=== PATIENT | female | born 1965 | race American Indian/Alaskan Native ===

== ENCOUNTER 2021-07-19 15:24 | Inpatient (IN) | payer MEDICAID, OTHER ==
[2021-07-19] MEDS ORDERED: Sodium Chloride 0.9% 1,000 ML IV ONE ×2 (15:30→16:58)
[2021-07-19] MEDS ORDERED: Sodium Chloride 0.9% 10 ML Syringe FLUSH PRN (15:58)
--- NOTE | 2021-07-19 16:13 | EDM.PDOC ---
ED HPI GENERAL MEDICAL PROBLEM - General Chief Complaint: General Stated Complaint: cough, sob, fatigue Time Seen by Provider: 07/19/21 15:24 Source of Information: Reports: Patient History Limitations: Reports: No Limitations - History of Present Illness INITIAL COMMENTS - FREE TEXT/NARRATIVE: C department complaint of cough, fatigue, fever, shortness of breath. Patient states that she has been sick approximately 7 days. She states in the last 24 hours she is increasing shortness of breath, cough in which she presented to the emergency department for. Patient states that she has been running low-grade fever. She states that she gets winded easily. Patient does not have the COVID-19 vaccine. Patient is not aware of any direct contact with COVID-19. Patient denies any other concerns or complaints. Patient denies any chest pain, dizziness, lightheadedness, blurred vision, CMS or range of motion concerns, abdominal pain, nausea or vomiting, or peripheral edema. Onset: Gradual Duration: Other Quality: Reports: Ache Severity: Severe Improves with: Reports: None Worsens with: Reports: None Associated Symptoms: Reports: Cough, cough w sputum, Fever/Chills, Loss of Appetite, Malaise, Shortness of Breath, Weakness. Denies: Nausea/Vomiting Headache Pain Score (Numeric/FACES): 7 - Related Data Allergies Allergy/AdvReac Type Severity Reaction Status Date / Time No Known Allergies Allergy Verified 07/19/21 18:02 Home Meds: Home Meds Multivit with Calcium,Iron,Min [One Daily with Calcium-Iron] 1 tab PO DAILY 07/19/21 [History] Nicotine Polacrilex [Nicotine Lozenge] 1 lozenge PO Q4H 07/19/21 [History] Nicotine [Nicoderm CQ] 1 patch TOP DAILY 07/19/21 [History] ED ROS GENERAL - Review of Systems Review Of Systems: Comprehensive ROS is negative, except as noted in HPI. Constitutional: Reports: Fever, Chills, Malaise, Weakness, Fatigue, Decreased Appetite HEENT: Reports: No Symptoms Respiratory: Reports: Pleuritic Chest Pain, Cough, Sputum Cardiovascular: Reports: No Symptoms Endocrine: Reports: No Symptoms GI/Abdominal: Reports: No Symptoms : Reports: No Symptoms Musculoskeletal: Reports: No Symptoms Skin: Reports: No Symptoms Neurological: Reports: No Symptoms Psychiatric: Reports: No Symptoms Hematologic/Lymphatic: Reports: No Symptoms Immunologic: Reports: No Symptoms ED EXAM, GENERAL - Physical Exam Exam: See Below Exam Limited By: No Limitations General Appearance: Alert, WD/WN, No Apparent Distress Eye Exam: Bilateral Eye: EOMI, PERRL Nose: Normal Inspection, Normal Mucosa, No Blood Head: Atraumatic, Normocephalic Neck: Normal Inspection, Supple, Non-Tender, Full Range of Motion Respiratory/Chest: Respiratory Distress, Decreased Breath Sounds, Rhonchi Cardiovascular: Tachycardia GI/Abdominal: Normal Bowel Sounds, Soft, Non-Tender, No Abnormal Bruit Back Exam: Normal Inspection, Full Range of Motion Extremities: Normal Inspection, Normal Range of Motion, Non-Tender, Normal Capillary Refill Neurological: Alert, Oriented, Normal Gait Psychiatric: Normal Affect, Normal Mood Skin Exam: Warm, Dry, Intact, Normal Color, No Rash Course - Vital Signs Last Recorded V/S: Last Vital Signs Temp 36.6 C 07/20/21 05:17 Pulse 85 07/20/21 05:17 Resp 20 07/20/21 05:17 BP 131/58 L 07/20/21 05:17 Pulse Ox 94 L 07/20/21 05:17 - Orders/Labs/Meds Orders: Active Orders 24 hr Category Date Time Status Cardiac Monitoring [RC] 06,10,14,18,22,02 Care 07/19/21 15:58 Active RT Aerosol Therapy [RC] 00,04,08,12,16,20 Care 07/19/21 16:14 Active CULTURE BLOOD [BC] Stat Lab 07/19/21 15:40 Received CULTURE BLOOD [BC] Stat Lab 07/19/21 15:54 Received Sodium Chloride 0.9% [Saline Flush] Med 07/19/21 15:58 Active 10 ml FLUSH ASDIRECTED PRN Blood Culture x2 Reflex Set [OM.PC] Stat Oth 07/19/21 15:57 Ordered Peripheral IV Insertion Adult [OM.PC] Stat Oth 07/19/21 15:57 Ordered Medication Orders Acetaminophen (Acetaminophen 325 Mg Tab) 650 mg PO Q4H PRN PRN Reason: Pain (Mild 1-3)/fever Last Admin: 07/20/21 02:55 Dose: 650 mg Documented by: ELMER Albuterol/Ipratropium (Albuterol/Ipratropium 3.0-0.5 Mg/3 Ml Neb Soln) 3 ml NEB Q4HWA [facility] Last Admin: 07/20/21 04:08 Dose: 3 ml Documented by: Admin: 07/19/21 23:50 Dose: 3 ml Documented by: Admin: 07/19/21 19:36 Dose: 3 ml Documented by: ELMER Albuterol/Ipratropium (Albuterol/Ipratropium 3.0-0.5 Mg/3 Ml Neb Soln) 3 ml NEB Q2H PRN PRN Reason: Shortness of Breath Last Admin: 07/20/21 02:07 Dose: 3 ml Documented by: ELMER Ceftriaxone Sodium (Ceftriaxone 1 Gm Vial) 1 gm IVPUSH DAILY [facility] Last Admin: 07/20/21 07:00 Dose: 1 gm Documented by: ELMER Guaifenesin/Codeine Phosphate (Codeine/Guaifenesin 10-100 Mg/5 Ml Syrup 5 Ml Cup) 5 ml PO Q4H PRN PRN Reason: Cough Last Admin: 07/20/21 07:00 Dose: 5 ml Documented by: Admin: 07/20/21 02:56 Dose: 5 ml Documented by: ELMER Sodium Chloride (Normal Saline) 1,000 mls @ 125 mls/hr IV ASDIRECTED [facility] Last Admin: 07/20/21 04:14 Dose: 125 mls/hr Documented by: Infusion: 07/20/21 02:04 Dose: 125 mls/hr Documented by: Admin: 07/19/21 18:04 Dose: 125 mls/hr Documented by: BHARTI Azithromycin 500 mg/ Sodium (Chloride) 250 mls @ 250 mls/hr IV DAILY [facility] Last Admin: 07/20/21 07:04 Dose: 250 mls/hr Documented by: Admin: 07/19/21 19:34 Dose: 250 mls/hr Documented by: ELMER Potassium Chloride 20 meq/ (Premix) 50 mls @ 50 mls/hr IV Q2H [facility] Stop: 07/20/21 13:44 Morphine Sulfate (Morphine 2 Mg/Ml Syringe) 2 mg IVPUSH Q2H PRN PRN Reason: Pain Multivitamins/Minerals (Multivitamins With Iron/Calcium/Folic Acid/Minerals Tab) 1 tab PO DAILY [facility] Last Admin: 07/20/21 07:00 Dose: 1 tab Documented by: ELMER Ondansetron HCl (Ondansetron 4 Mg/2 Ml Sdv) 4 mg IV Q4H PRN PRN Reason: Nausea/Vomiting Polyethylene Glycol (Polyethylene Glycol 3350 Powder 17 Gm Packet) 17 gm PO DAILY PRN PRN Reason: Constipation Sodium Chloride (Sodium Chloride 0.9% 10 Ml Syringe) 10 ml FLUSH ASDIRECTED PRN PRN Reason: Keep Vein Open Last Admin: 07/20/21 07:04 Dose: 10 ml Documented by: ELMER Labs: Laboratory Tests 07/19/21 07/19/21 07/19/21 Range/Units 15:30 15:40 15:40 WBC 8.6 (4.0-10.0) x10^3/uL RBC 4.03 (4.00-5.50) x10^6/uL Hgb 13.0 (12.0-16.0) g/dL Hct 35.1 (33.0-47.0) % MCV 87.1 (78.0-93.0) fL MCH 32.3 H (26.0-32.0) pg MCHC 37.0 H (32.0-36.0) g/dL RDW Coeff of Nedra 12.0 (10.0-15.0) % Plt Count 208 (130-400) x10^3/uL Immature Gran % (Auto) 0.50 H (0.00-0.43) % Neut % (Auto) 88.8 H (50.0-80.0) % Lymph % (Auto) 7.7 L (25.0-50.0) % Hubbard % (Auto) 2.6 (2.0-11.0) % Eos % (Auto) 0.2 (0.0-4.0) % Baso % (Auto) 0.2 (0.2-1.2) % Neut # (Auto) 7.6 (1.8-7.7) x10^3/uL Lymph # (Auto) 0.7 L (1.0-4.8) x10^3/uL Hubbard # (Auto) 0.2 (0.0-0.8) x10^3/uL Eos # (Auto) 0.0 (0.0-0.5) x10^3/uL Baso # (Auto) 0.0 (0.0-0.2) x10^3/uL Immature Gran # (Auto) 0.04 (0.00-0.07) x10^3/uL Sodium 131 L (136-145) mmol/L Potassium 3.1 L (3.5-5.1) mmol/L Chloride 92 L (98-107) mmol/L Carbon Dioxide 25 (21-32) mmol/L Anion Gap 17.1 H (5-15) mmol/L BUN 6 L (7-18) mg/dL Creatinine 0.9 (0.55-1.02) mg/dL Est Cr Clr Drug Dosing TNP Estimated GFR (MDRD) > 60 Glucose 120 H (70-99) mg/dL Lactic Acid (0.4-2.0) mmol/L Calcium 8.3 L (8.5-10.1) mg/dL Corrected Calcium 9.3 (8.5-10.1) mg/dL Magnesium (1.8-2.4) mg/dL Total Bilirubin 1.3 H (0.2-1.0) mg/dL AST 45 H (15-37) U/L ALT 29 (14-59) U/L Alkaline Phosphatase 94 (46-116) U/L Creatine Kinase 157 (26-192) U/L NT-Pro-B Natriuret Pep 72 (<=125) pg/mL Total Protein 8.0 (6.4-8.2) g/dL Albumin 2.7 L (3.4-5.0) g/dL Globulin 5.3 Albumin/Globulin Ratio 0.51 Procalcitonin (0.1-0.50) ng/mL SARS CoV-2 RNA Rapid MISAEL Negative (NEGATIVE) 07/19/21 07/19/21 07/19/21 Range/Units 15:40 15:40 15:40 WBC (4.0-10.0) x10^3/uL RBC (4.00-5.50) x10^6/uL Hgb (12.0-16.0) g/dL Hct (33.0-47.0) % MCV (78.0-93.0) fL MCH (26.0-32.0) pg MCHC (32.0-36.0) g/dL RDW Coeff of Nedra (10.0-15.0) % Plt Count (130-400) x10^3/uL Immature Gran % (Auto) (0.00-0.43) % Neut % (Auto) (50.0-80.0) % Lymph % (Auto) (25.0-50.0) % Hubbard % (Auto) (2.0-11.0) % Eos % (Auto) (0.0-4.0) % Baso % (Auto) (0.2-1.2) % Neut # (Auto) (1.8-7.7) x10^3/uL Lymph # (Auto) (1.0-4.8) x10^3/uL Hubbard # (Auto) (0.0-0.8) x10^3/uL Eos # (Auto) (0.0-0.5) x10^3/uL Baso # (Auto) (0.0-0.2) x10^3/uL Immature Gran # (Auto) (0.00-0.07) x10^3/uL Sodium (136-145) mmol/L Potassium (3.5-5.1) mmol/L Chloride (98-107) mmol/L Carbon Dioxide (21-32) mmol/L Anion Gap (5-15) mmol/L BUN (7-18) mg/dL Creatinine (0.55-1.02) mg/dL Est Cr Clr Drug Dosing Estimated GFR (MDRD) Glucose (70-99) mg/dL Lactic Acid 2.1 H* (0.4-2.0) mmol/L Calcium (8.5-10.1) mg/dL Corrected Calcium (8.5-10.1) mg/dL Magnesium 2.4 (1.8-2.4) mg/dL Total Bilirubin (0.2-1.0) mg/dL AST (15-37) U/L ALT (14-59) U/L Alkaline Phosphatase (46-116) U/L Creatine Kinase (26-192) U/L NT-Pro-B Natriuret Pep (<=125) pg/mL Total Protein (6.4-8.2) g/dL Albumin (3.4-5.0) g/dL Globulin Albumin/Globulin Ratio Procalcitonin 0.35 (0.1-0.50) ng/mL SARS CoV-2 RNA Rapid MISAEL (NEGATIVE) Meds: Medications Generic Name Dose Route Start Last Admin Trade Name Freq PRN Reason Stop Dose Admin Acetaminophen 650 mg 07/19/21 17:53 07/20/21 02:55 Acetaminophen 325 Mg Tab PO 650 mg Q4H PRN Administration Pain (Mild 1-3)/fever Albuterol/Ipratropium 3 ml 07/19/21 20:00 07/20/21 04:08 Albuterol/Ipratropium 3.0-0.5 Mg/3 Ml Neb Soln NEB 3 ml Q4HWA NESSA Administration Albuterol/Ipratropium 3 ml 07/19/21 17:51 07/20/21 02:07 Albuterol/Ipratropium 3.0-0.5 Mg/3 Ml Neb Soln NEB 3 ml Q2H PRN Administration Shortness of Breath Ceftriaxone Sodium 1 gm 07/20/21 08:00 07/20/21 07:00 Ceftriaxone 1 Gm Vial IVPUSH 1 gm DAILY NESSA Administration Guaifenesin/Codeine Phosphate 5 ml 07/19/21 17:57 07/20/21 07:00 Codeine/Guaifenesin 10-100 Mg/5 Ml Syrup 5 Ml Cup PO 5 ml Q4H PRN Administration Cough Sodium Chloride 1,000 mls @ 125 mls/hr 07/19/21 18:00 07/20/21 04:14 Normal Saline IV 125 mls/hr ASDIRECTED NESSA Administration Azithromycin 500 mg/ Sodium 250 mls @ 250 mls/hr 07/19/21 19:30 07/20/21 07:04 Chloride IV 250 mls/hr DAILY NESSA Administration Potassium Chloride 20 meq/ 50 mls @ 50 mls/hr 07/20/21 08:45 Premix IV 07/20/21 13:44 Q2H NESSA Morphine Sulfate 2 mg 07/19/21 17:57 Morphine 2 Mg/Ml Syringe IVPUSH Q2H PRN Pain Multivitamins/Minerals 1 tab 07/20/21 08:00 07/20/21 07:00 Multivitamins With Iron/Calcium/Folic Acid/Minerals Tab PO 1 tab DAILY NESSA Administration Ondansetron HCl 4 mg 07/19/21 17:53 Ondansetron 4 Mg/2 Ml Sdv IV Q4H PRN Nausea/Vomiting Polyethylene Glycol 17 gm 07/19/21 17:53 Polyethylene Glycol 3350 Powder 17 Gm Packet PO DAILY PRN Constipation Sodium Chloride 10 ml 07/19/21 15:58 07/20/21 07:04 Sodium Chloride 0.9% 10 Ml Syringe FLUSH 10 ml ASDIRECTED PRN Administration Keep Vein Open Discontinued Medications Generic Name Dose Route Start Last Admin Trade Name Freq PRN Reason Stop Dose Admin Acetaminophen 650 mg 07/19/21 16:43 07/19/21 16:55 Acetaminophen 325 Mg Tab PO 07/19/21 16:44 650 mg NOW ONE Administration Albuterol/Ipratropium 3 ml 07/19/21 16:14 07/19/21 16:25 Albuterol/Ipratropium 3.0-0.5 Mg/3 Ml Neb Soln NEB 07/19/21 16:15 3 ml ONETIME ONE Administration Albuterol/Ipratropium 3 ml 07/19/21 17:02 07/19/21 17:12 Albuterol/Ipratropium 3.0-0.5 Mg/3 Ml Neb Soln NEB 07/19/21 17:03 3 ml ONETIME ONE Administration Ceftriaxone Sodium 1 gm 07/19/21 16:14 07/19/21 16:20 Ceftriaxone 1 Gm Vial IVPUSH 07/19/21 16:15 1 gm ONETIME ONE Administration Epinephrine HCl Confirm 07/20/21 11:44 Epinephrine 1 Mg/1 Ml Amp Administered 07/20/21 11:45 Dose 3 mg .ROUTE .STK-MED ONE Epinephrine HCl Confirm 07/20/21 11:44 Epinephrine 1:10,000 1 Mg/10 Ml Syringe Administered 07/20/21 11:45 Dose 3 mg .ROUTE .STK-MED ONE Sodium Chloride 1,000 mls @ 999 mls/hr 07/19/21 15:30 07/19/21 15:40 Normal Saline IV 07/19/21 16:30 999 mls/hr ONETIME ONE Administration Sodium Chloride 1,000 mls @ 999 mls/hr 07/19/21 16:58 07/19/21 16:58 Normal Saline IV 07/19/21 17:58 999 mls/hr ONETIME ONE Administration Azithromycin 500 mg/ Sodium 250 mls @ 250 mls/hr 07/19/21 18:00 Chloride IV DAILY NESSA Potassium Chloride Confirm 07/20/21 11:40 Kcl In Water 20 Meq/50 Ml Administered 07/20/21 11:41 Dose 200 mls @ as directed .ROUTE .STK-MED ONE Midazolam HCl Confirm 07/20/21 11:27 Midazolam 1 Mg/Ml 2 Ml Sdv Administered 07/20/21 11:28 Dose 2 mg .ROUTE .STK-MED ONE Midazolam HCl Confirm 07/20/21 11:29 Midazolam 1 Mg/Ml 2 Ml Sdv Administered 07/20/21 11:30 Dose 2 mg .ROUTE .STK-MED ONE Midazolam HCl Confirm 07/20/21 11:29 Midazolam 1 Mg/Ml 2 Ml Sdv Administered 07/20/21 11:30 Dose 2 mg .ROUTE .STK-MED ONE Rocuronium Gypsum Confirm 07/20/21 10:50 Rocuronium 50 Mg/5 Ml Vial Administered 07/20/21 10:51 Dose 50 mg .ROUTE .STK-MED ONE Succinylcholine Chloride Confirm 07/20/21 10:50 Succinylcholine 200 Mg/10 Ml Mdv Administered 07/20/21 10:51 Dose 200 mg .ROUTE .STK-MED ONE Departure - Departure Time of Disposition: 16:35 Disposition: Admitted As Inpatient 68 Condition: Fair Clinical Impression: Pneumonia Qualifiers: Pneumonia type: due to unspecified organism Laterality: bilateral Lung location: lower lobe of lung Qualified Code(s): J18.9 - Pneumonia, unspecified organism Respiratory failure Qualifiers: Chronicity: acute Respiratory failure complication: hypoxia Qualified Code(s): J96.01 - Acute respiratory failure with hypoxia - Discharge Information *PRESCRIPTION DRUG MONITORING PROGRAM REVIEWED*: Not Applicable *COPY OF PRESCRIPTION DRUG MONITORING REPORT IN PATIENT CHASE: Not Applicable - My Orders Last 24 Hours: My Active Orders 07/19/21 15:40 CULTURE BLOOD [BC] Stat 07/19/21 15:54 CULTURE BLOOD [BC] Stat 07/19/21 15:57 Blood Culture x2 Reflex Set [OM.PC] Stat Peripheral IV Insertion Adult [OM.PC] Stat 07/19/21 15:58 Cardiac Monitoring [RC] 06,10,14,18,22,02 Sodium Chloride 0.9% [Saline Flush] 10 ml FLUSH ASDIRECTED PRN 07/19/21 16:14 RT Aerosol Therapy [RC] 00,04,08,12,16,20 - Assessment/Plan Last 24 Hours: My Active Orders 07/19/21 15:40 CULTURE BLOOD [BC] Stat 07/19/21 15:54 CULTURE BLOOD [BC] Stat 07/19/21 15:57 Blood Culture x2 Reflex Set [OM.PC] Stat Peripheral IV Insertion Adult [OM.PC] Stat 07/19/21 15:58 Cardiac Monitoring [RC] 06,10,14,18,22,02 Sodium Chloride 0.9% [Saline Flush] 10 ml FLUSH ASDIRECTED PRN 07/19/21 16:14 RT Aerosol Therapy [RC] 00,04,08,12,16,20 Assessment:: 1. pneumonia 2. SOB 3. Fatigue Plan: 1. Sepsis protocol initiated and followed 2. Labs completed in the ER. Results reviewed with the patient 3. Blood cultures completed 4. IV initiated in the emergency department 5. IV fluids provided- 2 L bolus i 6. EKG completed in ER. 7. Covid-19 test completed 8. Rocephin 1gm given 9. O2 therapy to keep sat above 92%. Hi-flow initiated 10. Consultation completed withVeronica Leahy who will admit the patient 11. Patient and nursing staff was updated regarding the plan of care 12. Patient and family are agreeable to the above plan of care 13. All questions and concerns were addressed with the patient and family prior to discharge
[2021-07-19] MEDS ORDERED: Albuterol/Ipratropium 3.0-0.5 MG/3 ML Neb Soln NEB ONE ×2 (16:14→17:02)
[2021-07-19] MEDS ORDERED: cefTRIAXone 1 GM Vial IVPUSH ONE (16:14)
[2021-07-19 16:28] LABS: ANION GAP 17.1 mmol/L (5-15); CHLORIDE,CL 92 mmol/L (98-107); SODIUM,NA 131 mmol/L (136-145)
[2021-07-19] MEDS ORDERED: Acetaminophen 325 MG Tab PO ONE (16:43)
[2021-07-19] MEDS ORDERED: Albuterol/Ipratropium 3.0-0.5 MG/3 ML Neb Soln NEB PRN (17:51)
[2021-07-19] MEDS ORDERED: Acetaminophen 325 MG Tab PO PRN (17:53)
[2021-07-19] MEDS ORDERED: Polyethylene Glycol 3350 Powder 17 GM Packet PO PRN (17:53)
[2021-07-19] MEDS ORDERED: Ondansetron 4 MG/2 ML SDV IV PRN (17:53)
--- NOTE | 2021-07-19 17:54 | CR ---
[id number] RAD/RAD Chest Portable EXAM: PORTABLE CHEST INDICATION: SOB COMPARISON: None. DISCUSSION: Mild elevation of the right hemidiaphragm. Borderline heart size. Multifocal bilateral infiltrates throughout both lungs most suggestive of infection including COVID pneumonia. No effusions. IMPRESSION: 1. Multifocal bilateral infiltrates most consistent with infection. Terrell Cha MD 07/19/21 [id number] Thank you for allowing us to participate in the care of your patient.
[2021-07-19] MEDS ORDERED: Morphine 2 MG/ML SYRINGE IVPUSH PRN (17:57)
[2021-07-19] MEDS ORDERED: Azithromycin 500 MG in Sodium Chloride 0.9% 250 ML IV SCH (18:00)
[2021-07-19] MEDS: Sodium Chloride 0.9% 1,000 ML IV SCH (18:04)
[2021-07-19] MEDS: Azithromycin 500 MG in Sodium Chloride 0.9% 250 ML IV SCH (19:34)
[2021-07-19] MEDS: Albuterol/Ipratropium 3.0-0.5 MG/3 ML Neb Soln NEB SCH ×2 (19:36→23:50)
--- NOTE | 2021-07-19 21:03 | HP ---
CHIEF COMPLAINT: 1. Shortness of breath. 2. Fatigue. HISTORY OF PRESENT ILLNESS: A 55-year-old female patient presented to the emergency room at [facility] for shortness of breath and fatigue that started about 7 days ago. The patient states her symptoms have progressively gotten worse. She now has a productive cough producing a green/yellow-appearing purulent sputum. The patient states she has had low-grade fevers at home. She has had on and off headaches. No dizziness or lightheadedness. The patient denies any chest pain or palpitations. No leg swelling. The patient states her appetite has not been very good over the past couple of days. She is trying to stay well hydrated with good p.o. fluid intake. The patient has not had any nausea or vomiting. No chills. ER course: The patient was given 1 g of Rocephin in the ER for sepsis. The patient was also given 1 L of fluid. The patient did have a chest x-ray completed in the emergency room, which showed multifocal bilateral infiltrates most consistent with infection. The patient's fever in the emergency room was 102.8. The patient was given Tylenol for the fever. The patient was then transferred to the acute care floor. PAST MEDICAL HISTORY: Tobacco use disorder. SURGICAL HISTORY: Denied. FAMILY HISTORY: Unknown. SOCIAL HISTORY: The patient states she quit smoking about 2 months ago. She denies any illegal drug use. No alcohol use. The patient is single. CODE STATUS: Full code. ALLERGIES: No known drug allergies. MEDICATIONS: Multivitamin 1 tablet p.o. daily. LABORATORY STUDIES: 1. CBC: White blood cell count 8.6, hemoglobin 13.0, hematocrit 35.1, platelets 208,000. 2. CMP: Sodium 131, potassium 3.1, chloride 92, CO2 25, anion gap 17.1, BUN 6, creatinine 0.9, GFR greater than 60, glucose 120, calcium 8.3, AST 45, ALT 29, alkaline phosphatase 94, total protein 8.0. 3. Lactic acid 2.1. 4. Magnesium 2.4. 5. CK 157. 6. ProBNP 72. 7. Procalcitonin 0.35. 8. COVID-19 - negative. REVIEW OF SYSTEMS: See HPI. PHYSICAL EXAMINATION: Vital Signs: Height 5 feet 3 inches, weight 156.8 pounds, temperature 101.4, pulse 100, blood pressure 117/60, respiratory rate 24, oxygen saturation 85% on high-flow oxygen. Skin: Intact, warm, and dry. Respiratory: The patient is tachypneic, lungs are coarse with rhonchi and end- expiratory wheezing with bibasilar crackles. Cardiovascular: Tachycardia, regular rhythm, no murmur. Abdomen: Soft, nontender. Bowel sounds are hypoactive x4. Extremities: No edema. Neurological: Patient is alert. Patient is oriented to person, place, and time. No focal neurological deficits. ASSESSMENT: 1. Sepsis secondary to community-acquired pneumonia, unknown organism. 2. Acute respiratory failure with hypoxia secondary to pneumonia of unknown organism. 3. Fevers. 4. Clinical dehydration. 5. History of tobacco use disorder. PLAN: A 55-year-old female patient will be admitted to the acute care floor at [facility] for the above diagnoses. Sepsis protocol is followed. Patient will be started on Rocephin and Zithromax. We will start the patient on DuoNeb every 4 hours while awake and every 2 hours as needed. COVID test was negative. Patient will remain on high-flow oxygen to keep saturations greater than 90%. Incentive spirometer every 2 hours as well as cough and deep breathing. The patient is a full code 1. The patient does wish to transfer to a higher level of care should the need arise. Recheck laboratory work tomorrow morning. Anticipate admission 3-4 days. DVT prophylaxis with early ambulation. Patient will be on a regular diet. TB: 07/19/2021 20:13:44 MODL: 07/19/2021 20:56:41 /[id number]
[2021-07-20] MEDS: Codeine/guaiFENesin 10-100 MG/5 ML Syrup 5 ML Cup PO PRN ×2 (02:56→07:00)
[2021-07-20] MEDS: Albuterol/Ipratropium 3.0-0.5 MG/3 ML Neb Soln NEB SCH (04:08)
[2021-07-20] MEDS: Sodium Chloride 0.9% 1,000 ML IV SCH (04:14)
[2021-07-20] MEDS: Azithromycin 500 MG in Sodium Chloride 0.9% 250 ML IV SCH (07:04)
[2021-07-20 07:38] LABS: CHLORIDE,CL 104 mmol/L (98-107); SODIUM,NA 140 mmol/L (136-145)
[2021-07-20 07:42] LABS: ANION GAP 13.8 mmol/L (5-15)
[2021-07-20] MEDS ORDERED: Multivitamins with Iron/Calcium/Folic Acid/Minerals Tab PO SCH (08:00)
[2021-07-20] MEDS ORDERED: cefTRIAXone 1 GM Vial IVPUSH SCH (08:00)
[2021-07-20] MEDS ORDERED: Potassium Chloride Riders 20 MEQ in Premix Bag 1 BAG IV SCH (08:45)
[2021-07-20 10:43] LABS: PCO2 ARTERIAL,POC 33 mmHg (35-48)
[2021-07-20] MEDS ORDERED: Succinylcholine 200 MG/10 ML MDV ONE (10:50)
[2021-07-20] MEDS ORDERED: Rocuronium 50 MG/5 ML Vial ONE (10:50)
--- NOTE | 2021-07-20 10:54 | PN ---
Progress Note for SIA CAMPOS Date: 07/20/2021 Room #: VM.205 CHIEF COMPLAINT: 1. Shortness of breath. 2. Fatigue. SUBJECTIVE: Hospital day #2 on a 55-year-old female patient who was seen through the emergency room yesterday evening for shortness of breath and fatigue. The patient was diagnosed with bilateral pneumonia. The patient was also febrile. The patient states she does not have any headache. She does not feel dizzy or lightheaded. She does have a productive cough. She still feels somewhat short of breath. The patient states it is hard to take in a deep breath. She has not had any chest pain or palpitations. No leg swelling. No skin problems. The patient continued to have fevers. The patient also has chills. No abdominal complaints. She has not had any diarrhea or nausea. REVIEW OF SYSTEMS: See HPI. PHYSICAL EXAMINATION: Vital Signs: Blood pressure 131/58, pulse 85, saturation 94% on 45% FiO2, respiratory rate 36, temperature 102.9. Skin: Intact, warm, and dry. Respiratory: Lungs are congested with significant rhonchi, end-expiratory wheezing, bibasilar crackles. Cardiovascular: Regular rate and rhythm, no murmur. Abdomen: Soft, nontender. Bowel sounds are hypoactive x4. Extremities: No edema. Neurologic: The patient is alert. The patient is oriented to person, place, and time. No focal neurological deficits. LABORATORY STUDIES: 1. CBC: White blood cell count 7.4, hemoglobin 11.1, hematocrit 32.6, platelets 165,000. 2. CMP: Sodium 140, potassium 2.8, chloride 104, CO2 of 25, anion gap 13.8, BUN 4, creatinine 0.8, GFR greater than 60, glucose 119, calcium 7.8, AST 35, ALT 23, alkaline phosphatase 82, total protein 6.4. 3. UA is unremarkable. ASSESSMENT: 1. Sepsis secondary to community-acquired pneumonia, unknown organism. 2. Acute respiratory failure with hypoxia secondary to pneumonia of unknown organism. 3. Fevers. 4. Clinical dehydration. 5. History of tobacco use disorder. PLAN: A 55-year-old female patient was admitted to acute care floor at [facility] for the above diagnoses. Continue to follow the sepsis protocol. We will check an ABG this morning as well as a troponin and CK. Recheck procalcitonin. Continue with IV fluids. The patient will have potassium replacement through the IV. Continue with oxygen to keep sats greater than 90%. Continue with incentive spirometry and cough and deep breathing. Recheck laboratory work tomorrow. We will start Lovenox today. TB: 07/20/2021 10:02:07 MODL: 07/20/2021 10:47:52 /[id number]
[2021-07-20 10:55] LABS: ANION GAP 14.2 mmol/L (5-15); CHLORIDE,CL 102 mmol/L (98-107); SODIUM,NA 138 mmol/L (136-145)
[2021-07-20] MEDS ORDERED: Sodium Chloride 0.9% 1,000 ML IV ONE (10:55)
[2021-07-20] MEDS ORDERED: EPINEPHrine 1:10,000 1 MG/10 ML Syringe ONE ×6 (11:09→11:44)
[2021-07-20] MEDS ORDERED: Etomidate 2 MG/ML 10 ML SDV ONE (11:09)
[2021-07-20] MEDS ORDERED: fentaNYL 100 MCG/2 ML SDV ONE (11:09)
[2021-07-20] MEDS ORDERED: Sodium Bicarbonate 8.4% 50 MEQ/50 ML Syringe ONE (11:09)
[2021-07-20] MEDS ORDERED: Midazolam 1 MG/ML 2 ML SDV ONE ×3 (11:27→11:29)
[2021-07-20] MEDS ORDERED: POTASSIUM CHLORIDE RIDERS ONE (11:40)
[2021-07-20] MEDS ORDERED: EPINEPHrine 1 MG/1 ML Amp ONE (11:44)
[2021-07-20 11:55] LABS: PCO2 ARTERIAL,POC 93 mmHg (35-48)
--- NOTE | 2021-07-20 12:05 | PCM.DCSUM1 ---
Discharge Summary - Hospital Course HPI Initial Comments: See admit H&P Brief History: Initial assessment of patient (see progress notes). Patient developed respiratory distress and brought to the ED for intubation. See CODE sheet. Diagnosis: Stroke: No Modified Madison Scale: No Symptoms at All Modified Madison Scale Score: 0 - Discharge Data Discharge Date: 07/20/21 Discharge Disposition: 20 Preliminary Cause of *Q: Multi System Organ Failure Condition: Critical - Referral to Home Health Primary Care Physician: Nikki Avila MD - Discharge Diagnosis/Problem(s) (1) Cardiopulmonary arrest SNOMED Code(s): 151118729 ICD Code: I46.9 - CARDIAC ARREST, CAUSE UNSPECIFIED Status: Acute Priority: High Current Visit: Yes (2) Respiratory failure SNOMED Code(s): 817750569 ICD Code: J96.90 - RESPIRATORY FAILURE, UNSP, UNSP W HYPOXIA OR HYPERCAPNIA Status: Acute Priority: High Current Visit: Yes Qualifiers: Chronicity: acute Respiratory failure complication: hypoxia Qualified Code(s): J96.01 - Acute respiratory failure with hypoxia - Patient Summary/Data Consults: Consultations 07/19/21 17:38 Consult to Case Management/Box Closing Machine Operator [CONS] Routine - Discharge Plan *PRESCRIPTION DRUG MONITORING PROGRAM REVIEWED*: Not Applicable *COPY OF PRESCRIPTION DRUG MONITORING REPORT IN PATIENT CHASE: Not Applicable Home Medications: Home Meds Multivit with Calcium,Iron,Min [One Daily with Calcium-Iron] 1 tab PO DAILY 07/19/21 [History] Nicotine Polacrilex [Nicotine Lozenge] 1 lozenge PO Q4H 07/19/21 [History] Nicotine [Nicoderm CQ] 1 patch TOP DAILY 07/19/21 [History] - Discharge Summary/Plan Comment DC Time >30 min.: Yes Total # of Minutes for Discharge Time: 58 Discharge Summary/Plan Comment: See CODE sheet by nursing documentation. Patient pronounced at 11:53 am. - General Info Date of Service: 07/20/21 Subjective Update: Unable to assess due to patient condition. - Patient Data Vitals - Most Recent: Last Vital Signs Temp 98 F 07/20/21 05:17 Pulse 85 07/20/21 05:17 Resp 20 07/20/21 05:17 BP 131/58 L 07/20/21 05:17 Pulse Ox 94 L 07/20/21 05:17 Weight - Most Recent: 156 lb 8 oz I&O - Last 24 hours: Intake & Output 07/19/21 07/20/21 07/20/21 22:59 06:59 14:59 Intake Total 1118 2049 490 Balance [id number] Lab Results - Last 24 hrs: Laboratory Results - last 24 hr 07/19/21 07/19/21 07/19/21 Range/Units 15:30 15:40 15:40 WBC 8.6 (4.0-10.0) x10^3/uL RBC 4.03 (4.00-5.50) x10^6/uL Hgb 13.0 (12.0-16.0) g/dL Hct 35.1 (33.0-47.0) % MCV 87.1 (78.0-93.0) fL MCH 32.3 H (26.0-32.0) pg MCHC 37.0 H (32.0-36.0) g/dL RDW Coeff of Nedra 12.0 (10.0-15.0) % Plt Count 208 (130-400) x10^3/uL Immature Gran % (Auto) 0.50 H (0.00-0.43) % Neut % (Auto) 88.8 H (50.0-80.0) % Lymph % (Auto) 7.7 L (25.0-50.0) % [place] % (Auto) 2.6 (2.0-11.0) % Eos % (Auto) 0.2 (0.0-4.0) % Baso % (Auto) 0.2 (0.2-1.2) % Neut # (Auto) 7.6 (1.8-7.7) x10^3/uL Lymph # (Auto) 0.7 L (1.0-4.8) x10^3/uL [place] # (Auto) 0.2 (0.0-0.8) x10^3/uL Eos # (Auto) 0.0 (0.0-0.5) x10^3/uL Baso # (Auto) 0.0 (0.0-0.2) x10^3/uL Immature Gran # (Auto) 0.04 (0.00-0.07) x10^3/uL Add Manual Diff Neutrophils % (Manual) (50-80) % Band Neutrophils % (0-6) % Lymphocytes % (Manual) (25-50) % Monocytes % (Manual) (2-11) % Metamyelocytes % (0) % Immature Gran # (0.00-0.07) X10^3/Ul Absolute Neutrophils (1.8-7.7) x10^3/uL Lymphocytes # (Manual) (1.0-4.8) x10^3/uL Monocytes # (Manual) (0.0-0.8) x10^3/uL Platelet Estimate POC ABG pH (7.35-7.45) pH POC ABG pCO2 (35-48) mmHg POC ABG pO2 (83-108) mmHg POC ABG HCO3 (21-28) mmol/L POC ABG Total CO2 (22-29) mmol/L POC ABG O2 Sat (94-98) % POC ABG Base Excess ((-2)-3) mmol/L POC FiO2 POC Blood Gas Comment Sodium 131 L (136-145) mmol/L Potassium 3.1 L (3.5-5.1) mmol/L Chloride 92 L (98-107) mmol/L Carbon Dioxide 25 (21-32) mmol/L Anion Gap 17.1 H (5-15) mmol/L BUN 6 L (7-18) mg/dL Creatinine 0.9 (0.55-1.02) mg/dL Est Cr Clr Drug Dosing TNP Estimated GFR (MDRD) > 60 Glucose 120 H (70-99) mg/dL Lactic Acid (0.4-2.0) mmol/L Calcium 8.3 L (8.5-10.1) mg/dL Corrected Calcium 9.3 (8.5-10.1) mg/dL Magnesium (1.8-2.4) mg/dL Total Bilirubin 1.3 H (0.2-1.0) mg/dL AST 45 H (15-37) U/L ALT 29 (14-59) U/L Alkaline Phosphatase 94 (46-116) U/L Creatine Kinase 157 (26-192) U/L Troponin I High Sens (<=51) ng/L NT-Pro-B Natriuret Pep 72 (<=125) pg/mL Total Protein 8.0 (6.4-8.2) g/dL Albumin 2.7 L (3.4-5.0) g/dL Globulin 5.3 Albumin/Globulin Ratio 0.51 Procalcitonin (0.1-0.50) ng/mL Urine Color (YELLOW) Urine Appearance (CLEAR) Urine pH (5.0-8.0) Ur Specific [place] Urine Protein (NEGATIVE) mg/dL Urine Glucose (UA) (NEGATIVE) mg/dL Urine Ketones (NEGATIVE) mg/dL Urine Occult Blood (NEGATIVE) Urine Nitrite (NEGATIVE) Urine Bilirubin (NEGATIVE) Urine Urobilinogen (0.2) EU/dL Ur Leukocyte Esterase (NEGATIVE) SARS CoV-2 RNA Rapid MISAEL Negative (NEGATIVE) 07/19/21 07/19/21 07/19/21 Range/Units 15:40 15:40 15:40 WBC (4.0-10.0) x10^3/uL RBC (4.00-5.50) x10^6/uL Hgb (12.0-16.0) g/dL Hct (33.0-47.0) % MCV (78.0-93.0) fL MCH (26.0-32.0) pg MCHC (32.0-36.0) g/dL RDW Coeff of Nedra (10.0-15.0) % Plt Count (130-400) x10^3/uL Immature Gran % (Auto) (0.00-0.43) % Neut % (Auto) (50.0-80.0) % Lymph % (Auto) (25.0-50.0) % [place] % (Auto) (2.0-11.0) % Eos % (Auto) (0.0-4.0) % Baso % (Auto) (0.2-1.2) % Neut # (Auto) (1.8-7.7) x10^3/uL Lymph # (Auto) (1.0-4.8) x10^3/uL [place] # (Auto) (0.0-0.8) x10^3/uL Eos # (Auto) (0.0-0.5) x10^3/uL Baso # (Auto) (0.0-0.2) x10^3/uL Immature Gran # (Auto) (0.00-0.07) x10^3/uL Add Manual Diff Neutrophils % (Manual) (50-80) % Band Neutrophils % (0-6) % Lymphocytes % (Manual) (25-50) % Monocytes % (Manual) (2-11) % Metamyelocytes % (0) % Immature Gran # (0.00-0.07) X10^3/Ul Absolute Neutrophils (1.8-7.7) x10^3/uL Lymphocytes # (Manual) (1.0-4.8) x10^3/uL Monocytes # (Manual) (0.0-0.8) x10^3/uL Platelet Estimate POC ABG pH (7.35-7.45) pH POC ABG pCO2 (35-48) mmHg POC ABG pO2 (83-108) mmHg POC ABG HCO3 (21-28) mmol/L POC ABG Total CO2 (22-29) mmol/L POC ABG O2 Sat (94-98) % POC ABG Base Excess ((-2)-3) mmol/L POC FiO2 POC Blood Gas Comment Sodium (136-145) mmol/L Potassium (3.5-5.1) mmol/L Chloride (98-107) mmol/L Carbon Dioxide (21-32) mmol/L Anion Gap (5-15) mmol/L BUN (7-18) mg/dL Creatinine (0.55-1.02) mg/dL Est Cr Clr Drug Dosing Estimated GFR (MDRD) Glucose (70-99) mg/dL Lactic Acid 2.1 H* (0.4-2.0) mmol/L Calcium (8.5-10.1) mg/dL Corrected Calcium (8.5-10.1) mg/dL Magnesium 2.4 (1.8-2.4) mg/dL Total Bilirubin (0.2-1.0) mg/dL AST (15-37) U/L ALT (14-59) U/L Alkaline Phosphatase (46-116) U/L Creatine Kinase (26-192) U/L Troponin I High Sens (<=51) ng/L NT-Pro-B Natriuret Pep (<=125) pg/mL Total Protein (6.4-8.2) g/dL Albumin (3.4-5.0) g/dL Globulin Albumin/Globulin Ratio Procalcitonin 0.35 (0.1-0.50) ng/mL Urine Color (YELLOW) Urine Appearance (CLEAR) Urine pH (5.0-8.0) Ur Specific [place] Urine Protein (NEGATIVE) mg/dL Urine Glucose (UA) (NEGATIVE) mg/dL Urine Ketones (NEGATIVE) mg/dL Urine Occult Blood (NEGATIVE) Urine Nitrite (NEGATIVE) Urine Bilirubin (NEGATIVE) Urine Urobilinogen (0.2) EU/dL Ur Leukocyte Esterase (NEGATIVE) SARS CoV-2 RNA Rapid MISAEL (NEGATIVE) 07/19/21 07/19/21 07/20/21 Range/Units 18:40 19:43 06:39 WBC 7.4 (4.0-10.0) x10^3/uL RBC 3.61 L (4.00-5.50) x10^6/uL Hgb 11.1 L D (12.0-16.0) g/dL Hct 32.6 L (33.0-47.0) % MCV 90.3 D (78.0-93.0) fL MCH 30.7 (26.0-32.0) pg MCHC 34.0 (32.0-36.0) g/dL RDW Coeff of Nedra 12.7 (10.0-15.0) % Plt Count 165 (130-400) x10^3/uL Immature Gran % (Auto) 0.70 H (0.00-0.43) % Neut % (Auto) 89.7 H (50.0-80.0) % Lymph % (Auto) 7.2 L (25.0-50.0) % [place] % (Auto) 1.6 L (2.0-11.0) % Eos % (Auto) 0.5 (0.0-4.0) % Baso % (Auto) 0.3 (0.2-1.2) % Neut # (Auto) 6.6 (1.8-7.7) x10^3/uL Lymph # (Auto) 0.5 L (1.0-4.8) x10^3/uL [place] # (Auto) 0.1 (0.0-0.8) x10^3/uL Eos # (Auto) 0.0 (0.0-0.5) x10^3/uL Baso # (Auto) 0.0 (0.0-0.2) x10^3/uL Immature Gran # (Auto) 0.05 (0.00-0.07) x10^3/uL Add Manual Diff Neutrophils % (Manual) (50-80) % Band Neutrophils % (0-6) % Lymphocytes % (Manual) (25-50) % Monocytes % (Manual) (2-11) % Metamyelocytes % (0) % Immature Gran # (0.00-0.07) X10^3/Ul Absolute Neutrophils (1.8-7.7) x10^3/uL Lymphocytes # (Manual) (1.0-4.8) x10^3/uL Monocytes # (Manual) (0.0-0.8) x10^3/uL Platelet Estimate POC ABG pH (7.35-7.45) pH POC ABG pCO2 (35-48) mmHg POC ABG pO2 (83-108) mmHg POC ABG HCO3 (21-28) mmol/L POC ABG Total CO2 (22-29) mmol/L POC ABG O2 Sat (94-98) % POC ABG Base Excess ((-2)-3) mmol/L POC FiO2 POC Blood Gas Comment Sodium (136-145) mmol/L Potassium (3.5-5.1) mmol/L Chloride (98-107) mmol/L Carbon Dioxide (21-32) mmol/L Anion Gap (5-15) mmol/L BUN (7-18) mg/dL Creatinine (0.55-1.02) mg/dL Est Cr Clr Drug Dosing Estimated GFR (MDRD) Glucose (70-99) mg/dL Lactic Acid 1.9 (0.4-2.0) mmol/L Calcium (8.5-10.1) mg/dL Corrected Calcium (8.5-10.1) mg/dL Magnesium (1.8-2.4) mg/dL Total Bilirubin (0.2-1.0) mg/dL AST (15-37) U/L ALT (14-59) U/L Alkaline Phosphatase (46-116) U/L Creatine Kinase (26-192) U/L Troponin I High Sens (<=51) ng/L NT-Pro-B Natriuret Pep (<=125) pg/mL Total Protein (6.4-8.2) g/dL Albumin (3.4-5.0) g/dL Globulin Albumin/Globulin Ratio Procalcitonin (0.1-0.50) ng/mL Urine Color Yellow (YELLOW) Urine Appearance Clear (CLEAR) Urine pH 7.0 (5.0-8.0) Ur Specific [place] 1.010 Urine Protein Negative (NEGATIVE) mg/dL Urine Glucose (UA) Negative (NEGATIVE) mg/dL Urine Ketones Negative (NEGATIVE) mg/dL Urine Occult Blood Negative (NEGATIVE) Urine Nitrite Negative (NEGATIVE) Urine Bilirubin Negative (NEGATIVE) Urine Urobilinogen 1.0 (0.2) EU/dL Ur Leukocyte Esterase Negative (NEGATIVE) SARS CoV-2 RNA Rapid MISAEL (NEGATIVE) 07/20/21 07/20/21 07/20/21 Range/Units 06:39 10:20 10:40 WBC (4.0-10.0) x10^3/uL RBC (4.00-5.50) x10^6/uL Hgb (12.0-16.0) g/dL Hct (33.0-47.0) % MCV (78.0-93.0) fL MCH (26.0-32.0) pg MCHC (32.0-36.0) g/dL RDW Coeff of Nedra (10.0-15.0) % Plt Count (130-400) x10^3/uL Immature Gran % (Auto) (0.00-0.43) % Neut % (Auto) (50.0-80.0) % Lymph % (Auto) (25.0-50.0) % [place] % (Auto) (2.0-11.0) % Eos % (Auto) (0.0-4.0) % Baso % (Auto) (0.2-1.2) % Neut # (Auto) (1.8-7.7) x10^3/uL Lymph # (Auto) (1.0-4.8) x10^3/uL [place] # (Auto) (0.0-0.8) x10^3/uL Eos # (Auto) (0.0-0.5) x10^3/uL Baso # (Auto) (0.0-0.2) x10^3/uL Immature Gran # (Auto) (0.00-0.07) x10^3/uL Add Manual Diff Neutrophils % (Manual) (50-80) % Band Neutrophils % (0-6) % Lymphocytes % (Manual) (25-50) % Monocytes % (Manual) (2-11) % Metamyelocytes % (0) % Immature Gran # (0.00-0.07) X10^3/Ul Absolute Neutrophils (1.8-7.7) x10^3/uL Lymphocytes # (Manual) (1.0-4.8) x10^3/uL Monocytes # (Manual) (0.0-0.8) x10^3/uL Platelet Estimate POC ABG pH 7.46 H (7.35-7.45) pH POC ABG pCO2 33 L (35-48) mmHg POC ABG pO2 47 L* (83-108) mmHg POC ABG HCO3 23.0 (21-28) mmol/L POC ABG Total CO2 23.4 (22-29) mmol/L POC ABG O2 Sat 84.9 L (94-98) % POC ABG Base Excess -1 ((-2)-3) mmol/L POC FiO2 86 POC Blood Gas Comment Called critical res Sodium 140 (136-145) mmol/L Potassium 2.8 L* (3.5-5.1) mmol/L Chloride 104 D (98-107) mmol/L Carbon Dioxide 25 (21-32) mmol/L Anion Gap 13.8 (5-15) mmol/L BUN 4 L (7-18) mg/dL Creatinine 0.8 (0.55-1.02) mg/dL Est Cr Clr Drug Dosing 69.04 Estimated GFR (MDRD) > 60 Glucose 119 H (70-99) mg/dL Lactic Acid (0.4-2.0) mmol/L Calcium 7.8 L (8.5-10.1) mg/dL Corrected Calcium 9.4 (8.5-10.1) mg/dL Magnesium (1.8-2.4) mg/dL Total Bilirubin 0.8 (0.2-1.0) mg/dL AST 35 (15-37) U/L ALT 23 (14-59) U/L Alkaline Phosphatase 82 (46-116) U/L Creatine Kinase 139 (26-192) U/L Troponin I High Sens 185 H* (<=51) ng/L NT-Pro-B Natriuret Pep (<=125) pg/mL Total Protein 6.4 (6.4-8.2) g/dL Albumin 2.0 L (3.4-5.0) g/dL Globulin 4.4 Albumin/Globulin Ratio 0.45 Procalcitonin (0.1-0.50) ng/mL Urine Color (YELLOW) Urine Appearance (CLEAR) Urine pH (5.0-8.0) Ur Specific [place] Urine Protein (NEGATIVE) mg/dL Urine Glucose (UA) (NEGATIVE) mg/dL Urine Ketones (NEGATIVE) mg/dL Urine Occult Blood (NEGATIVE) Urine Nitrite (NEGATIVE) Urine Bilirubin (NEGATIVE) Urine Urobilinogen (0.2) EU/dL Ur Leukocyte Esterase (NEGATIVE) SARS CoV-2 RNA Rapid MISAEL (NEGATIVE) 07/20/21 07/20/21 07/20/21 Range/Units 10:40 10:40 11:51 WBC 9.4 (4.0-10.0) x10^3/uL RBC 3.92 L (4.00-5.50) x10^6/uL Hgb 12.1 (12.0-16.0) g/dL Hct 34.6 (33.0-47.0) % MCV 88.3 (78.0-93.0) fL MCH 30.9 (26.0-32.0) pg MCHC 35.0 (32.0-36.0) g/dL RDW Coeff of Ned[place] 12.7 (10.0-15.0) % Plt Count 173 (130-400) x10^3/uL Immature Gran % (Auto) (0.00-0.43) % Neut % (Auto) (50.0-80.0) % Lymph % (Auto) (25.0-50.0) % [place] % (Auto) (2.0-11.0) % Eos % (Auto) (0.0-4.0) % Baso % (Auto) (0.2-1.2) % Neut # (Auto) (1.8-7.7) x10^3/uL Lymph # (Auto) (1.0-4.8) x10^3/uL [place] # (Auto) (0.0-0.8) x10^3/uL Eos # (Auto) (0.0-0.5) x10^3/uL Baso # (Auto) (0.0-0.2) x10^3/uL Immature Gran # (Auto) (0.00-0.07) x10^3/uL Add Manual Diff Yes Neutrophils % (Manual) 88 H (50-80) % Band Neutrophils % 3 (0-6) % Lymphocytes % (Manual) 6 L (25-50) % Monocytes % (Manual) 2 (2-11) % Metamyelocytes % 1 H (0) % Immature Gran # 0.09 H (0.00-0.07) X10^3/Ul Absolute Neutrophils 8.6 H (1.8-7.7) x10^3/uL Lymphocytes # (Manual) 0.6 L (1.0-4.8) x10^3/uL Monocytes # (Manual) 0.2 (0.0-0.8) x10^3/uL Platelet Estimate Adequate POC ABG pH 6.94 L* (7.35-7.45) pH POC ABG pCO2 93 H* (35-48) mmHg POC ABG pO2 10 L* (83-108) mmHg POC ABG HCO3 20.1 L (21-28) mmol/L POC ABG Total CO2 22.5 (22-29) mmol/L POC ABG O2 Sat 4.4 L (94-98) % POC ABG Base Excess -12 L ((-2)-3) mmol/L POC FiO2 100 POC Blood Gas Comment Sodium 138 (136-145) mmol/L Potassium 3.2 L (3.5-5.1) mmol/L Chloride 102 (98-107) mmol/L Carbon Dioxide 25 (21-32) mmol/L Anion Gap 14.2 (5-15) mmol/L BUN 4 L (7-18) mg/dL Creatinine 0.8 (0.55-1.02) mg/dL Est Cr Clr Drug Dosing 69.04 Estimated GFR (MDRD) > 60 Glucose 155 H (70-99) mg/dL Lactic Acid (0.4-2.0) mmol/L Calcium 8.0 L (8.5-10.1) mg/dL Corrected Calcium (8.5-10.1) mg/dL Magnesium (1.8-2.4) mg/dL Total Bilirubin (0.2-1.0) mg/dL AST (15-37) U/L ALT (14-59) U/L Alkaline Phosphatase (46-116) U/L Creatine Kinase (26-192) U/L Troponin I High Sens (<=51) ng/L NT-Pro-B Natriuret Pep (<=125) pg/mL Total Protein (6.4-8.2) g/dL Albumin (3.4-5.0) g/dL Globulin Albumin/Globulin Ratio Procalcitonin (0.1-0.50) ng/mL Urine Color (YELLOW) Urine Appearance (CLEAR) Urine pH (5.0-8.0) Ur Specific [place] Urine Protein (NEGATIVE) mg/dL Urine Glucose (UA) (NEGATIVE) mg/dL Urine Ketones (NEGATIVE) mg/dL Urine Occult Blood (NEGATIVE) Urine Nitrite (NEGATIVE) Urine Bilirubin (NEGATIVE) Urine Urobilinogen (0.2) EU/dL Ur Leukocyte Esterase (NEGATIVE) SARS CoV-2 RNA Rapid MISAEL (NEGATIVE) Med Orders - Current: Current Medications Acetaminophen (Acetaminophen 325 Mg Tab) 650 mg PO Q4H PRN PRN Reason: Pain (Mild 1-3)/fever Last Admin: 07/20/21 02:55 Dose: 650 mg Documented by: Albuterol/Ipratropium (Albuterol/Ipratropium 3.0-0.5 Mg/3 Ml Neb Soln) 3 ml NEB Q4HWA [facility] Last Admin: 07/20/21 04:08 Dose: 3 ml Documented by: Albuterol/Ipratropium (Albuterol/Ipratropium 3.0-0.5 Mg/3 Ml Neb Soln) 3 ml NEB Q2H PRN PRN Reason: Shortness of Breath Last Admin: 07/20/21 02:07 Dose: 3 ml Documented by: Ceftriaxone Sodium (Ceftriaxone 1 Gm Vial) 1 gm IVPUSH DAILY [facility] Last Admin: 07/20/21 07:00 Dose: 1 gm Documented by: Guaifenesin/Codeine Phosphate (Codeine/Guaifenesin 10-100 Mg/5 Ml Syrup 5 Ml Cup) 5 ml PO Q4H PRN PRN Reason: Cough Last Admin: 07/20/21 07:00 Dose: 5 ml Documented by: Sodium Chloride (Normal Saline) 1,000 mls @ 125 mls/hr IV ASDIRECTED [facility] Last Admin: 07/20/21 04:14 Dose: 125 mls/hr Documented by: Azithromycin 500 mg/ Sodium (Chloride) 250 mls @ 250 mls/hr IV DAILY [facility] Last Admin: 07/20/21 07:04 Dose: 250 mls/hr Documented by: Potassium Chloride 20 meq/ (Premix) 50 mls @ 50 mls/hr IV Q2H [facility] Stop: 07/20/21 13:44 Morphine Sulfate (Morphine 2 Mg/Ml Syringe) 2 mg IVPUSH Q2H PRN PRN Reason: Pain Multivitamins/Minerals (Multivitamins With Iron/Calcium/Folic Acid/Minerals Tab) 1 tab PO DAILY [facility] Last Admin: 07/20/21 07:00 Dose: 1 tab Documented by: Ondansetron HCl (Ondansetron 4 Mg/2 Ml Sdv) 4 mg IV Q4H PRN PRN Reason: Nausea/Vomiting Polyethylene Glycol (Polyethylene Glycol 3350 Powder 17 Gm Packet) 17 gm PO DAILY PRN PRN Reason: Constipation Sodium Chloride (Sodium Chloride 0.9% 10 Ml Syringe) 10 ml FLUSH ASDIRECTED PRN PRN Reason: Keep Vein Open Last Admin: 07/20/21 07:04 Dose: 10 ml Documented by: Discontinued Medications Acetaminophen (Acetaminophen 325 Mg Tab) 650 mg PO NOW ONE Stop: 07/19/21 16:44 Last Admin: 07/19/21 16:55 Dose: 650 mg Documented by: Albuterol/Ipratropium (Albuterol/Ipratropium 3.0-0.5 Mg/3 Ml Neb Soln) 3 ml NEB ONETIME ONE Stop: 07/19/21 16:15 Last Admin: 07/19/21 16:25 Dose: 3 ml Documented by: Albuterol/Ipratropium (Albuterol/Ipratropium 3.0-0.5 Mg/3 Ml Neb Soln) 3 ml NEB ONETIME ONE Stop: 07/19/21 17:03 Last Admin: 07/19/21 17:12 Dose: 3 ml Documented by: Ceftriaxone Sodium (Ceftriaxone 1 Gm Vial) 1 gm IVPUSH ONETIME ONE Stop: 07/19/21 16:15 Last Admin: 07/19/21 16:20 Dose: 1 gm Documented by: Epinephrine HCl (Epinephrine 1 Mg/1 Ml Amp) Confirm Administered Dose 3 mg .ROUTE .STK-MED ONE Stop: 07/20/21 11:45 Epinephrine HCl (Epinephrine 1:10,000 1 Mg/10 Ml Syringe) Confirm Administered Dose 3 mg .ROUTE .STK-MED ONE Stop: 07/20/21 11:45 Sodium Chloride (Normal Saline) 1,000 mls @ 999 mls/hr IV ONETIME ONE Stop: 07/19/21 16:30 Last Admin: 07/19/21 15:40 Dose: 999 mls/hr Documented by: Sodium Chloride (Normal Saline) 1,000 mls @ 999 mls/hr IV ONETIME ONE Stop: 07/19/21 17:58 Last Admin: 07/19/21 16:58 Dose: 999 mls/hr Documented by: Azithromycin 500 mg/ Sodium (Chloride) 250 mls @ 250 mls/hr IV DAILY [facility] Potassium Chloride (Kcl In Water 20 Meq/50 Ml) Confirm Administered Dose 200 mls @ as directed .ROUTE .STK-MED ONE Stop: 07/20/21 11:41 Midazolam HCl (Midazolam 1 Mg/Ml 2 Ml Sdv) Confirm Administered Dose 6 mg .ROUTE .STK-MED ONE Stop: 07/20/21 11:28 Midazolam HCl (Midazolam 1 Mg/Ml 2 Ml Sdv) Confirm Administered Dose 2 mg .ROUTE .STK-MED ONE Stop: 07/20/21 11:30 Midazolam HCl (Midazolam 1 Mg/Ml 2 Ml Sdv) Confirm Administered Dose 2 mg .ROUTE .STK-MED ONE Stop: 07/20/21 11:30 Rocuronium [place] (Rocuronium 50 Mg/5 Ml Vial) Confirm Administered Dose 50 mg .ROUTE .STK-MED ONE Stop: 07/20/21 10:51 Succinylcholine Chloride (Succinylcholine 200 Mg/10 Ml Mdv) Confirm Administered Dose 200 mg .ROUTE .STK-MED ONE Stop: 07/20/21 10:51 - Exam Quality Assessment: Reports: Supplemental Oxygen General: Reports: Other (Unresponsive) HEENT: Reports: Other (Pupils non-reactive) Lungs: Reports: Other (No spontaneous respirations on auscultation) Cardiovascular: Reports: Other (No spontaneous heart beat to auscultation) Neurological: Reports: Other (No spontaneous reaction to obnoxious stimuli)
--- NOTE | 2021-07-20 12:57 | CR ---
[id number] RAD/RAD Chest PA or AP 1V EXAM: FRONTAL CHEST INDICATION: POST INTUBATION. COMPARISON: July 19, 2021. DISCUSSION: Serial chest x-rays performed for endotracheal tube placement. The tube is past the mohamud on both films suggesting esophageal intubation. Mild to moderate gaseous distention of the stomach. Low lung volumes with increased bilateral infiltrates. No effusions. Mild cardiomegaly. Results called at time dictation. IMPRESSION: 1. Endotracheal tube likely positioned in the esophagus. 2. Increased bilateral infiltrates. Terrell Cha MD 07/20/21 [id number] Thank you for allowing us to participate in the care of your patient.
--- NOTE | 2021-07-23 17:41 | PCM.PN ---
- General Info Date of Service: 07/20/21 Subjective Update: Patient was seen and examined early this AM and found to be doing ok. She was able to talk in full sentences, make needs known, etc. However, after an hour or so, the RN caring for the patient contacted this specification writer reporting a change in patient condition. This specification writer immediately examined patient. She was conversive, but very tired. Oxygen saturations were dropping and patient was having chest retractions. This specification writer explained her change of condition to patient. Explained to patient our next step would be intubation. Patient competent and agreed for having an advanced airway placed. Case discussed with Katty Clinton, ER provider. Katty offered to do a controlled intubation in the ER with her as the attending for the procedure. Patient immediately transferred to the ER and care transferred to Katty for a controlled intubation. Functional Status: Reports: New Symptoms - Review of Systems General: Reports: Fever, Weakness, Chills HEENT: Reports: No Symptoms Pulmonary: Reports: Shortness of Breath, Cough, Sputum, Wheezing Cardiovascular: Reports: No Symptoms Skin: Reports: No Symptoms Neurological: Reports: No Symptoms Psychiatric: Reports: No Symptoms - Patient Data Vitals - Most Recent: Last Vital Signs Temp 102.9 F H 07/20/21 10:15 Pulse 110 H 07/20/21 10:15 Resp 32 H 07/20/21 10:15 BP 127/64 07/20/21 10:15 Pulse Ox 90 L 07/20/21 10:15 Weight - Most Recent: 156 lb 8 oz Nabeel Results Last 24 Hours: Microbiology 07/19/21 15:54 Aerobic Blood Culture - Preliminary Blood - Venous - Lab Draw NO GROWTH AFTER 4 DAYS Anaerobic Blood Culture - Preliminary NO GROWTH AFTER 4 DAYS 07/19/21 15:40 Aerobic Blood Culture - Preliminary Blood - Venous NO GROWTH AFTER 4 DAYS Anaerobic Blood Culture - Preliminary NO GROWTH AFTER 4 DAYS Med Orders - Current: Current Medications Discontinued Medications Acetaminophen (Acetaminophen 325 Mg Tab) 650 mg PO NOW ONE Stop: 07/19/21 16:44 Last Admin: 07/19/21 16:55 Dose: 650 mg Documented by: Acetaminophen (Acetaminophen 325 Mg Tab) 650 mg PO Q4H PRN PRN Reason: Pain (Mild 1-3)/fever Last Admin: 07/20/21 02:55 Dose: 650 mg Documented by: Albuterol/Ipratropium (Albuterol/Ipratropium 3.0-0.5 Mg/3 Ml Neb Soln) 3 ml NEB ONETIME ONE Stop: 07/19/21 16:15 Last Admin: 07/19/21 16:25 Dose: 3 ml Documented by: Albuterol/Ipratropium (Albuterol/Ipratropium 3.0-0.5 Mg/3 Ml Neb Soln) 3 ml NEB ONETIME ONE Stop: 07/19/21 17:03 Last Admin: 07/19/21 17:12 Dose: 3 ml Documented by: Albuterol/Ipratropium (Albuterol/Ipratropium 3.0-0.5 Mg/3 Ml Neb Soln) 3 ml NEB Q4HWA [facility] Last Admin: 07/20/21 04:08 Dose: 3 ml Documented by: Albuterol/Ipratropium (Albuterol/Ipratropium 3.0-0.5 Mg/3 Ml Neb Soln) 3 ml NEB Q2H PRN PRN Reason: Shortness of Breath Last Admin: 07/20/21 02:07 Dose: 3 ml Documented by: Ceftriaxone Sodium (Ceftriaxone 1 Gm Vial) 1 gm IVPUSH ONETIME ONE Stop: 07/19/21 16:15 Last Admin: 07/19/21 16:20 Dose: 1 gm Documented by: Ceftriaxone Sodium (Ceftriaxone 1 Gm Vial) 1 gm IVPUSH DAILY [facility] Last Admin: 07/20/21 07:00 Dose: 1 gm Documented by: Epinephrine HCl (Epinephrine 1 Mg/1 Ml Amp) Confirm Administered Dose 3 mg .ROUTE .STK-MED ONE Stop: 07/20/21 11:45 Epinephrine HCl (Epinephrine 1:10,000 1 Mg/10 Ml Syringe) Confirm Administered Dose 3 mg .ROUTE .STK-MED ONE Stop: 07/20/21 11:45 Guaifenesin/Codeine Phosphate (Codeine/Guaifenesin 10-100 Mg/5 Ml Syrup 5 Ml Cup) 5 ml PO Q4H PRN PRN Reason: Cough Last Admin: 07/20/21 07:00 Dose: 5 ml Documented by: Sodium Chloride (Normal Saline) 1,000 mls @ 999 mls/hr IV ONETIME ONE Stop: 07/19/21 16:30 Last Admin: 07/19/21 15:40 Dose: 999 mls/hr Documented by: Sodium Chloride (Normal Saline) 1,000 mls @ 999 mls/hr IV ONETIME ONE Stop: 07/19/21 17:58 Last Admin: 07/19/21 16:58 Dose: 999 mls/hr Documented by: Sodium Chloride (Normal Saline) 1,000 mls @ 125 mls/hr IV ASDIRECTED [facility] Last Admin: 07/20/21 04:14 Dose: 125 mls/hr Documented by: Azithromycin 500 mg/ Sodium (Chloride) 250 mls @ 250 mls/hr IV DAILY NESSA Azithromycin 500 mg/ Sodium (Chloride) 250 mls @ 250 mls/hr IV DAILY [facility] Last Admin: 07/20/21 07:04 Dose: 250 mls/hr Documented by: Potassium Chloride 20 meq/ (Premix) 50 mls @ 50 mls/hr IV Q2H [facility] Stop: 07/20/21 13:44 Potassium Chloride (Kcl In Water 20 Meq/50 Ml) Confirm Administered Dose 200 mls @ as directed .ROUTE .STK-MED ONE Stop: 07/20/21 11:41 Midazolam HCl (Midazolam 1 Mg/Ml 2 Ml Sdv) Confirm Administered Dose 2 mg .ROUTE .STK-MED ONE Stop: 07/20/21 11:28 Midazolam HCl (Midazolam 1 Mg/Ml 2 Ml Sdv) Confirm Administered Dose 2 mg .ROUTE .STK-MED ONE Stop: 07/20/21 11:30 Midazolam HCl (Midazolam 1 Mg/Ml 2 Ml Sdv) Confirm Administered Dose 2 mg .ROUTE .STK-MED ONE Stop: 07/20/21 11:30 Morphine Sulfate (Morphine 2 Mg/Ml Syringe) 2 mg IVPUSH Q2H PRN PRN Reason: Pain Multivitamins/Minerals (Multivitamins With Iron/Calcium/Folic Acid/Minerals Tab) 1 tab PO DAILY [facility] Last Admin: 07/20/21 07:00 Dose: 1 tab Documented by: Ondansetron HCl (Ondansetron 4 Mg/2 Ml Sdv) 4 mg IV Q4H PRN PRN Reason: Nausea/Vomiting Polyethylene Glycol (Polyethylene Glycol 3350 Powder 17 Gm Packet) 17 gm PO DAILY PRN PRN Reason: Constipation Rocuronium [place] (Rocuronium 50 Mg/5 Ml Vial) Confirm Administered Dose 50 mg .ROUTE .STK-MED ONE Stop: 07/20/21 10:51 Sodium Chloride (Sodium Chloride 0.9% 10 Ml Syringe) 10 ml FLUSH ASDIRECTED PRN PRN Reason: Keep Vein Open Last Admin: 07/20/21 07:04 Dose: 10 ml Documented by: Succinylcholine Chloride (Succinylcholine 200 Mg/10 Ml Mdv) Confirm Administered Dose 200 mg .ROUTE .STK-MED ONE Stop: 07/20/21 10:51 - Exam Quality Assessment: Supplemental Oxygen General: Alert, Moderate Distress HEENT: Pupils Equal, Pupils Reactive Lungs: Decreased Breath Sounds, Crackles, Rhonchi, Wheezing Cardiovascular: Regular Rate, Regular Rhythm, No Murmurs Extremities: Normal Inspection Peripheral Pulses: 2+: Radial (L), Radial (R), Femoral (L), Femoral (R) Skin: Warm, Dry, Intact Neurological: No New Focal Deficit Psy/Mental Status: Alert - Patient Data Result Diagrams: 07/20/21 10:40 07/20/21 10:40 Nabeel Results Last 24 hrs: Microbiology 07/19/21 15:54 Aerobic Blood Culture - Preliminary Blood - Venous - Lab Draw NO GROWTH AFTER 4 DAYS Anaerobic Blood Culture - Preliminary NO GROWTH AFTER 4 DAYS 07/19/21 15:40 Aerobic Blood Culture - Preliminary Blood - Venous NO GROWTH AFTER 4 DAYS Anaerobic Blood Culture - Preliminary NO GROWTH AFTER 4 DAYS Sepsis Event Note - Evaluation Sepsis Screening Result: No Definite Risk Current Stage of Sepsis: Sepsis Possible Source of Sepsis: Pulmonary - Focused Exam Sepsis Event Note Statement: Focused Sepsis Exam Completed Date Exam was Performed: 07/19/21 Time Exam was Performed: 17:10 - Problem List & Annotations (1) Respiratory failure SNOMED Code(s): 452806287 Code(s): J96.90 - RESPIRATORY FAILURE, UNSP, UNSP W HYPOXIA OR HYPERCAPNIA Status: Acute Priority: High Qualifiers: Chronicity: acute Respiratory failure complication: hypoxia Qualified Code(s): J96.01 - Acute respiratory failure with hypoxia - Problem List Review Problem List Initiated/Reviewed/Updated: Yes - Assessment Assessment:: 1. Sepsis 2/2 CAP unknown organism 2. Acute Respiratory Failure with hypoxia 2/2 CAP 3. Deteriorating Resp status 4. Oxygen dependence 5. Fever, unspecified 6. Clinical dehydration 7. History of Tobacco Use Disorder - Plan Plan:: See Subjective Update Patient will be transferred to the ER for controlled intubation per Katty Clinton NP. See ER documentation.
== END 2021-07-20 11:53 | disposition expired | DRG 871 ==
LOC: VM.ED 15:24 → VM.MS 16:29
PROVIDERS: ADMIT Nurse Practitioner Family; ATTEND Family Medicine
PROC: 5A0935A Assistance with Respiratory Ventilation, Less than 24 Consecutive Hours, High Flow/Velocity Cannula (ICD-10-PCS; principal; 2021-07-19)
PROC: 0BH17EZ Insertion of Endotracheal Airway into Trachea, Via Natural or Artificial Opening (ICD-10-PCS; 2021-07-20)
DX: A41.9 Sepsis, unspecified organism (principal); J96.01 Acute respiratory failure with hypoxia; J18.9 Pneumonia, unspecified organism; R65.21 Severe sepsis with septic shock; I46.9 Cardiac arrest, cause unspecified; Z20.822 Contact with and (suspected) exposure to COVID-19; E86.0 Dehydration; Z79.899 Other long term (current) drug therapy; Z87.891 Personal history of nicotine dependence
CPT/HCPCS: 36415; 36600; 71045; 80048; 80053; 81003; 82550; 82803; 83605; 83735; 83880; 84145; 84484; 85025; 87040; 93005; 94640; 94760; 96374; 99284; 99285-25; A9270-GY; J0171; J0330; J0456; J0696; J3010; J3490; J7030; J7050; J7620-GY; U0002